=== PATIENT | male | born 1980 ===

== ENCOUNTER 2018-03-02 14:44 | Emergency (ER) | payer SELFPAY ==
--- NOTE | 2018-03-02 17:57 | ED ---
GI/ HPI - HPI Summary HPI Summary: 37 year old male presents with potentially HIV exposure. He states he gave minimal anal penetration today. He states he did not use a condom. He states the person he had sex with does have anal sex frequently. He states the person is on PEP. He is concerned that he might have a HIV. He has no medical conditions. denies any pain or penile discharge. - History of Current Complaint Chief Complaint: EDExposureBodyFluid Time Seen by Provider: 03/02/18 17:40 Stated Complaint: POSS EXPOSURE TO HIV Pain Intensity: 0 - Allergy/Home Medications Allergies/Adverse Reactions: Allergies Allergy/AdvReac Type Severity Reaction Status Date / Time No Known Allergies Allergy Verified 03/02/18 18:05 Home Medications: Home Medications NK [No Home Medications Reported] 03/02/18 [History Confirmed 03/02/18] PMH/Surg Hx/FS Hx/Imm Hx Endocrine/Hematology History: Denies: Hx Anticoagulant Therapy Cardiovascular History: Denies: Hx Myocardial Infarction Infectious Disease History: No Infectious Disease History: Denies: Traveled Outside the [place] in Last 30 Days - Family History Known Family History: Negative: Diabetes - Social History Alcohol Use: Occasionally Substance Use Type: Reports: None Review of Systems Negative: Fever Negative: Chest Pain Negative: Shortness Of Breath Positive: other - potential hiv exposure All Other Systems Reviewed And Are Negative: Yes Physical Exam Triage Information Reviewed: Yes Vital Signs On Initial Exam: Initial Vitals Temp Pulse Resp BP Pulse Ox 98.1 F 83 16 138/79 97 03/02/18 14:47 03/02/18 14:47 03/02/18 14:47 03/02/18 14:47 03/02/18 14:47 Vital Signs Reviewed: Yes Appearance: Positive: Well-Appearing Skin: Positive: Warm, Dry Head/Face: Positive: Normal Head/Face Inspection Eyes: Positive: Normal, Conjunctiva Clear ENT: Positive: Pharynx normal Respiratory/Lung Sounds: Positive: Clear to Auscultation, Breath Sounds Present Cardiovascular: Positive: Normal, RRR Abdomen Description: Positive: Nontender, Soft Bowel Sounds: Positive: Present Musculoskeletal: Positive: Normal Neurological: Positive: Normal Psychiatric: Positive: Normal Diagnostics - Vital Signs Vital Signs Temp Pulse Resp BP Pulse Ox 03/02/18 16:36 98.5 F 66 18 132/69 100 03/02/18 14:47 98.1 F 83 16 138/79 97 - Laboratory Lab Statement: Any lab studies that have been ordered have been reviewed, and results considered in the medical decision making process. GIGU Course/Dx - Course Course Of Treatment: 37 year old male presents with potentially HIV exposure. He states he gave minimal anal penetration today. He states he did not use a condom. He states the person he had sex with does have anal sex frequently. He states the person is on PEP. He is concerned that he might have a HIV. He has no medical conditions. on exam normal physical exam. discussed risk vs benefit and patient declined PEP. patient refused lab work beside gc/rosina. patient understand and agrees with plan. - Diagnoses Differential Diagnoses - Male: STD, Urinary Tract Infection, Other - hiv exposure Provider Diagnoses: Patient exposure to body fluids Discharge - Sign-Out/Discharge Documenting (check all that apply): Patient Departure - Discharge Plan Condition: Good Disposition: HOME Referrals: [facility] [Outside] Additional Instructions: [facility] Return to ED if develop any new or worsening symptoms - Billing Disposition and Condition Condition: GOOD Disposition: Home
[2018-03-02 18:04] VITALS: BP 122/81
== END 2018-03-02 18:03 | disposition home or self-care (01) ==
LOC: ED 14:44
DX: Z20.6 Contact with and (suspected) exposure to human immunodeficiency virus [HIV] (principal); Z77.21 Contact with and (suspected) exposure to potentially hazardous body fluids
CPT/HCPCS: 87491; 87591; 99282